=== PATIENT | male | born 1960 | race Caucasian/White ===

== ENCOUNTER 2018-08-08 12:55 | Emergency (ER) | payer OTHER ==
[~2018-08-08] VITALS: Wt 61.2 kg
[2018-08-08] MEDS ORDERED: CLINDAMYCIN HC300 MG PO (13:46)
== END 2018-08-08 14:09 | disposition home or self-care (01) ==
LOC: ED 12:55
DX: S61.215A Laceration without foreign body of left ring finger without damage to nail, initial encounter (principal); R03.0 Elevated blood-pressure reading, without diagnosis of hypertension; Z23 Encounter for immunization; Z88.0 Allergy status to penicillin; W25.XXXA Contact with sharp glass, initial encounter; Y93.89 Activity, other specified; Y92.69 Other specified industrial and construction area as the place of occurrence of the external cause; Y99.0 Civilian activity done for income or pay